=== PATIENT | male | born 1950 | race African-American/Black ===

== ENCOUNTER → 2016-05-13 | Outpatient (CLI) | payer MEDICARE ==
[~2016-05-13] MED LIST: AMLODIPINE-BEN1 EAC5 PO; ASPIRIN81 M2 PO; GLIPIZIDE ER2.5 MG; GLIPIZIDE ER2.5 MG PO; GLIPIZIDE XL5 MG; GLUCOTROL PO; HCTZ PO; HYTRIN10 M1 PO; HYTRIN10 MG PO; METOPROLOL SUC100 MG PO; NABUMETONE PO; RELAFEN500 MG PO
--- NOTE | ~2016-05-13 | CT55 ---
[facility] A Service of [facility] & [facility] RADIOLOGY TEXT RESULTS PATIENT: HARSHA VELAZQUEZ [facility] UNIT #: [id number] AGE: [address]: Bhavik Lomax MD SEX: M ORDER DR: [id number] [facility] [address] [facility]. [place], [place] [address] [id number] O MR#: [id number] [facility] #: [id number] NAME: HARSHA VELAZQUEZ : 1950 SEX: M STUDY DATE/TIME: 05/13/2016 12:00 UNIT: CCA ROOM: STUDY DESCRIPTION: CT Chest W Con Attending Physician: Bhavik Lomax M.D. Ordering Physician: Bhavik Lomax M.D. Primary Care Physician: Jeff Conley M.D. MEDICAL IMAGING REPORT This report is preliminary unless electronic signature is present EXAM CT chest with contrast, 05/13/2016 12 o'clock hours HISTORY 65-year-old man with history of smoking and 2-week history of productive cough for further evaluation of an abnormal chest x-ray demonstrating a left hilar mass and left lingular nodule today. COMPARISON Chest film, 05/13/[address] images were obtained from the thoracic inlet through the adrenal glands. Sagittal and coronal reconstructions were performed. Contrast was Isovue-370, 70 mL IV. Total exam DLP 999 mGy-cm. This CT exam was performed with one or more of the following radiation dose reduction techniques: automatic exposure control, adjustment of mA and/or kV according to patient size, and iterative reconstruction. FINDINGS Images through the thoracic inlet demonstrate a normal thyroid gland. There is no supraclavicular adenopathy. Images through the chest are abnormal. There is a large left perihilar and infrahilar mass measuring 5.9 x 5.5 x 6.4 cm cephalocaudad. This extends from the left hilum abutting the posterior margin of the left mainstem bronchus and encases the left lower lobe pulmonary artery extending inferomedially and abuts the right lateral margin of the descending thoracic aorta without definite invasion. There are small prevascular, precarinal and subcarinal lymph nodes. There is no pericardial or pleural fluid. [facility] A Service of [facility] RADIOLOGY TEXT RESULTS PATIENT: HARSHA VELAZQUEZ LOCATION: [facility] : 48 UNIT #: [id number] AGE: [address]: Bhavik Lomax MD SEX: M ORDER DR: Lung window images demonstrate underlying centrilobular emphysema with a well-circumscribed noncalcified suspicious nodule in the lingular segment of the left upper lobe measuring 1.5 x 1.3 x 1.3 cm. There is minimal airspace and ground-glass change at the left lower lobe laterally, felt most likely a postobstructive process. The right adrenal gland demonstrates minimal thickening laterally. There is central nodularity in the left adrenal gland with a dense area measuring 1.1 cm and a low-density area surrounding this measuring 2.6 x 2.5 cm. This is indeterminate. There are bilateral upper pole renal lesions most consistent with cysts although these are incompletely evaluated. No definite liver lesion is seen. Bone window images demonstrate no lytic or blastic lesions. IMPRESSION 1. Abnormal chest CT confirming the presence of a 1.5 x 1.3 x 1.3 cm well-circumscribed noncalcified soft tissue nodule in the lingula. There is associated left hilar/infrahilar large macrolobulated mass measuring 5.9 x 5.5 x 6.4 cm. These findings correspond to the findings seen on chest x-ray today and are highly suspicious for primary lung carcinoma. The lesion in the lingula is well circumscribed. This could represent the primary tumor with adenopathy at the hilum. Alternatively, this could represent a peripheral metastasis. Its well-circumscribed contours favor metastasis. 2. There are small mediastinal and hilar nodes but no other pathologic nodes. The tumor mass at the left hilum abuts the left mainstem bronchus posterior wall with involvement of the wall suggested. It abuts the descending thoracic aorta left lateral margin without definite invasion. It encases the left lower lobe pulmonary artery which is patent. 3. There are no bone lesions. 4. Mild thickening of the right adrenal gland with enlargement of the left adrenal gland with low-density area measuring up to 2.6 cm and hyperdense area measuring 1.2 cm. Left adrenal metastasis cannot be excluded. 5. There are low attenuation lesions in upper poles of both kidneys, incompletely evaluated. Cysts are favored. 6. No bone lesions are seen. STAT * RESULT Dictated by... Olesya Bowens M.D. THIS IS AN ELECTRONICALLY VERIFIED REPORT Olesya Bowens M.D. at 05/13/2016 2:32 PM SMM/flaco [facility] A Service of [facility] & [facility] RADIOLOGY TEXT RESULTS PATIENT: HARSHA VELAZQUEZ LOCATION: [facility] : [birth year] UNIT #: [id number] AGE: [address]: Bhavik Lomax MD SEX: M ORDER DR: TD: 05/13/2016 12:37 JOB #: [id number] MEDICAL IMAGING REPORT Page 1 of 1 COPY
[2016-05-13 16:11] LABS: POC - CREATININE 1.53 mg/dL (0.64-1.27)
== END | disposition home or self-care (01) ==
LOC: CCAT 11:20
PROVIDERS: Family Medicine
DX: R05 Cough (principal); R52 Pain, unspecified; R93.8 Abnormal findings on diagnostic imaging of other specified body structures; R91.1 Solitary pulmonary nodule; R91.8 Other nonspecific abnormal finding of lung field; E27.8 Other specified disorders of adrenal gland; F17.200 Nicotine dependence, unspecified, uncomplicated
CPT/HCPCS: 71260; 82565; Q9967

== ENCOUNTER → 2016-06-14 | Outpatient (CLI) | payer MEDICARE ==
[2016-06-14 09:35] LABS: ARTERIAL BLD GAS O2 SATURATION 93.8 % (90.0-100.0); ARTERIAL BLOOD GAS CARBOXY HB 1.2 %sat (0.0-9.0); ARTERIAL BLOOD GAS HCO3 26.5 mmol/L; ARTERIAL BLOOD GAS MET HB 0.6 %sat (0.0-2.0)
[2016-06-14 09:36] LABS: ARTERIAL BLOOD GAS ALLEN TEST N; ARTERIAL BLOOD GAS ART SITE LEFT RADIAL; ARTERIAL BLOOD GAS PO2 69.9 mmHg (80.0-100); ARTERIAL DRAW? YES
== END | disposition home or self-care (01) ==
LOC: CRC 08:42
PROVIDERS: Surgery
DX: R59.0 Localized enlarged lymph nodes (principal); R91.8 Other nonspecific abnormal finding of lung field
CPT/HCPCS: 36600; 82803; 94060; 94726; 94729

== ENCOUNTER → 2016-06-17 | Day surgery (SDC) | payer MEDICARE ==
--- NOTE | ~2016-06-17 | OR ---
Unit #: [id number] #: [id number] Patient: HARSHA VELAZQUEZ [id number] [address] [place], [place] [address] [id number] O MR#: [id number] NAME: HARSHA VELAZQUEZ ROOM: Date of Procedure: 06/17/2016 Admission Date: 06/17/2016 Surgeon: Rudi Mcknight M.D. : 1950 Attending Physician: Rudi Mcknight M.D. Primary Care Physician: Bhavik Lomax M.D. OPERATIVE REPORT PREOPERATIVE DIAGNOSIS Tumor obstructing the left lower lobe bronchus. POSTOPERATIVE DIAGNOSES Tumor obstructing the left lower lobe bronchus with gross tumor involving the distal left mainstem bronchus and totally obstructing the left lower lobe bronchus as well as narrowing the takeoff to the left upper lobe. PROCEDURE PERFORMED Flexible fiberoptic bronchoscopy with biopsies obtained of the tumor of the distal left mainstem bronchus and with washings being collected. ANESTHESIA Local plus IV sedation. ESTIMATED BLOOD LOSS Minimal. COMPLICATIONS None. DESCRIPTION OF PROCEDURE The patient was taken to the endoscopy suite and placed on a stretcher in a supine position. After appropriate monitoring lines had been placed, IV sedation was obtained using a total of 5 mg of intravenous Versed and 200 mcg of intravenous fentanyl. Anesthesia of the posterior pharynx was obtained using Hurricaine spray. After adequate anesthesia had been obtained in this fashion, the flexible bronchoscope was passed orally per a bite block into the posterior pharynx. The vocal cords were visualized and found to be without lesions and both moved well with phonation. Anesthesia of the cords was obtained by injecting 2% Xylocaine per the scope. The scope was passed through the cords into the trachea. 1% Xylocaine was injected per the scope to anesthetize the tracheobronchial tree. The entire length of trachea was visualized and found to be normal. The sam was sharp. The right upper lobe, right middle lobe, and right lower lobe were all examined to their subsegmental bronchi level and found to be within normal limits. The proximal left mainstem bronchus was normal. Distally in the left mainstem bronchus, there was noted to be gross tumor with a whitish discoloration and totally obstructing the takeoff of the left lower lobe. The tumor extended over so much that it narrowed the subsequent takeoff to the left upper lobe. I was unable to get the scope past the tumor and examined the left upper lobe. Photos Unit #: [id number] #: [id number] Patient: HARSHA VELAZQUEZ were taken of the tumor. Multiple biopsies were obtained from the tumor and these were sent to Pathology. Also washings were collected and sent for cytology as well as cultures. After adequate hemostasis had been ensured, the bronchoscope was removed. The patient tolerated the procedure well and left the endoscopy suite in satisfactory condition. Dictated by... Rudi Mcknight M.D. VINAY/lilly TD: 06/18/2016 20:44 JOB #: [id number] OPERATIVE REPORT Page 1 of 1 X Rudi Mcknight MD X PROCEDURE OPERATIVE NOTE
== END | disposition home or self-care (01) ==
LOC: COPS 09:12
PROVIDERS: Surgery
DX: J98.4 Other disorders of lung (principal); E11.9 Type 2 diabetes mellitus without complications
CPT/HCPCS: 82947; 87070; 87077; 87102; 87107; 87116; 87205; 87206; 88108; 88305; 88312; J0171; J2250; J3010

== ENCOUNTER → 2016-07-02 | Outpatient (CLI) | payer MEDICARE ==
--- NOTE | ~2016-07-02 | NM70 ---
[facility] A Service of [facility] RADIOLOGY TEXT RESULTS PATIENT: HARSHA VELAZQUEZ LOCATION: [facility] : 48 UNIT #: [id number] AGE: [address]: Rudi Mcknight MD SEX: M ORDER DR: [id number] [facility] [address] [place], [place] [address] [id number] O MR#: [id number] Acc #: [id number] NAME: HARSHA VELAZQUEZ : 1950 SEX: M STUDY DATE/TIME: 07/02/2016 11:02 UNIT: [facility] ROOM: STUDY DESCRIPTION: [place] Pulmonary Perf Image Attending Physician: Rudi Mcnkight M.D. Referring Physician: Rudi Mcknight M.D. Ordering Physician: Rudi Mcknight M.D. Primary Care Physician: Bhavik Lomax M.D. MEDICAL IMAGING REPORT This report is preliminary unless electronic signature is present EXAM Quantitative perfusion lung scan. HISTORY Left lower lobe lung cancer. Preop lung surgery. FINDINGS Split function perfusion lung scan was performed following injection of 5.84 mCi technetium MAA. There is uniformly diminished perfusion to the left lung as compared to the right. Total lung perfusion is 87% right lung and 13% left lung. There is fairly uniform tracer uptake throughout the right lung and uniform, though diffusely diminished uptake in the left lung. In the left lung, 50% of the perfusion uptake is in the left upper lobe distribution. IMPRESSION Uniformly diminished perfusion to the left lung as compared to the right. The total lung perfusion is 87% right lung and 13% left lung. Dictated by... Jaylan Butcher M.D. THIS IS AN ELECTRONICALLY VERIFIED REPORT Jaylan Butcher M.D. at 07/02/2016 11:33 PM AUBREY/dee dee TD: 07/02/2016 22:27 JOB #: [id number] MEDICAL IMAGING REPORT Page 1 of 1 COPY
== END | disposition home or self-care (01) ==
LOC: CNUC 10:31
DX: Z01.811 Encounter for preprocedural respiratory examination (principal); C34.90 Malignant neoplasm of unspecified part of unspecified bronchus or lung; R94.2 Abnormal results of pulmonary function studies
CPT/HCPCS: 78580; A9540

== ENCOUNTER → 2016-07-05 | Outpatient (CLI) | payer MEDICARE ==
--- NOTE | ~2016-07-05 | ST ---
Unit #: [id number] #: [id number] Patient: HARSHA VELAZQUEZ [id number] [address] [address] [id number] O MR#: [id number] NAME: HARSHA VELAZQUEZ : 1950 SEX: M STUDY DATE/TIME: 07/05/2016 UNIT: [facility] ROOM: STUDY DESCRIPTION: Stress test Attending Physician: Rudi Mcknight M.D. Referring Physician: Rudi Mcknight M.D. Primary Care Physician: Jeff Conley M.D. CARDIOLOGY REPORT PROCEDURES PERFORMED Nuclear stress test - ECG portion. INDICATION Preoperative cardiovascular risk stratification. SUMMARY Patient underwent Lexiscan protocol. The patient's resting heart rate 62 beats per minute, which increased to 116 beats per minute representing 75% of the maximum age predicted heart rate. The patient's resting blood pressure 114/65 mmHg, which increased to 160/60 mmHg. The patient's resting ECG showed normal sinus rhythm with normal ST segments. The patient's stress ECG shows sinus rhythm with preserved ST segments. There is no ventricular, supraventricular ectopy noted. There are no pauses noted. CONCLUSIONS No obvious ischemia on the ECG portion of the nuclear stress test. Perfusion imaging dictated below. PROCEDURES PERFORMED Perfusion imaging. SUMMARY The patient underwent nuclear stress test. Received resting dose of 11.16 mCi and a stress dose of 34.3 mCi. On gated imaging the patient appears to have normal wall motion with preserved ejection fraction. The patient's LVEF is 62%. On perfusion imaging, comparing rest and stress images, there appears to be no reversible perfusion defects. CONCLUSIONS 1. No obvious ischemia. 2. Preserved ejection fraction. 3. ECG portion dictated above. Dictated by... Sheila Gallo M.D. [place]/db TD: 07/05/2016 15:47 Unit #: [id number] #: [id number] Patient: HARSHA VELAZQUEZ JOB #: [id number] CARDIOLOGY REPORT Page 1 of 1 X SHEILA GALLO MD CARDIOLOGY REPORT
== END | disposition home or self-care (01) ==
LOC: CNUC 07:59
DX: Z01.810 Encounter for preprocedural cardiovascular examination (principal); D49.1 Neoplasm of unspecified behavior of respiratory system
CPT/HCPCS: 78452; 93017; A9500; J2785

== ENCOUNTER → 2016-07-22 | Outpatient (CLI) | payer MEDICARE ==
--- NOTE | ~2016-07-22 | EKG ---
PATIENT: HARSHA VELAZQUEZ UNIT #: [id number] Ventricular Rate: 70 BPM Atrial Rate: 70 BPM P-R Interval: 170 ms QRS Duration: 98 ms Q-T Interval: 388 ms QTC Calculation(Bezet): 419 ms P [place]: 90 degrees Calculated R [place]: 89 degrees Calculated T [place]: 47 degrees Diagnosis Line: Sinus rhythm with Premature atrial complexes Diagnosis Line: Voltage criteria for left ventricular hypertrophy Diagnosis Line: Borderline ECG Diagnosis Line: No previous ECGs available Diagnosis Line: Confirmed by JOANNA ONOFRE MD ([id number]) on Diagnosis Line: 07/24/2016 1:02:55 PM INTERPRETING MD: MJ
[2016-07-22 09:46] LABS: HEMATOCRIT 36.3 % (38.0-50.0); HEMOGLOBIN 11.9 gm/dL (13.0-16.0); MEAN CELL VOLUME 85.2 FL (83-96); MEAN CORPUSCULAR HEMOGLOBIN 27.9 PG (28-34); MEAN CORPUSCULAR HGB CONC 32.8 g/dL (30-36); MEAN PLATELET VOLUME 7.8 FL (6.5-11.5); RED BLOOD COUNT 4.26 X10e (3.90-5.60); RED CELL DISTRIBUTION WIDTH 13.9 % (11.0-15.5); WHITE BLOOD COUNT 9.6 X10e3 (4.0-10.5)
[2016-07-22 09:59] LABS: URINE APPEARANCE CLEAR; URINE BILIRUBIN NEG (NEG); URINE BLOOD NEG (NEG); URINE COLOR YELLOW; URINE GLUCOSE NEG (NEG); URINE KETONE NEG (NEG); URINE LEUKOCYTE ESTERASE NEG (NEG); URINE NITRATE NEG (NEG); URINE PROTEIN NEG (NEG); URINE SPECIFIC GRAVITY 1.018 (1.003-1.035)
[2016-07-22 10:09] LABS: INR 1.1; PARTIAL THROMBOPLASTIN TIME 32.9 SECONDS (23.5-31.3); PROTHROMBIN TIME (PATIENT) 11.7 SECONDS (9.6-11.5)
[2016-07-22 10:20] LABS: ALBUMIN SERUM 3.2 g/dL (3.5-5.0); BUN/CREATININE RATIO 17.27; CALCIUM SERUM 9.4 mg/dL (8.4-10.2); CREATININE SERUM 1.1 mg/dL (0.6-1.4); GLOM FILT RATE Estimated 80.7 mL/min (>60); POTASSIUM 4.1 mmol/L (3.5-5.1); PROTEIN TOTAL SERUM 6.8 g/dL (6.0-8.3)
== END | disposition home or self-care (01) ==
LOC: CAMB 09:00 → EDSTATUS 09:00 → CAMB 09:06
PROVIDERS: Surgery
DX: R91.8 Other nonspecific abnormal finding of lung field (principal)
CPT/HCPCS: 36415; 80053; 81003; 85027; 85610; 85730; 86850; 86900; 86901; 93005

== ENCOUNTER → 2016-07-23 | Day surgery (SDC) | payer MEDICARE ==
--- NOTE | ~2016-07-23 | OR ---
Unit #: [id number] #: [id number] Patient: HARSHA VELAZQUEZ [id number] [address] [address] [id number] O MR#: [id number] NAME: HARSHA VELAZQUEZ ROOM: Date of Procedure: 07/23/2016 Admission Date: 07/23/2016 Surgeon: Rudi Mcknight M.D. : 1950 Attending Physician: Rudi Mcknight M.D. Primary Care Physician: Bhavik Lomax M.D. OPERATIVE REPORT PREOPERATIVE DIAGNOSIS Obstructing tumor at the left lower lobe takeoff. 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 PROCEDURES PERFORMED Flexible fiberoptic bronchoscopy with biopsies obtained of the tumor at the takeoff of the left lower lobe and with washings being collected; mediastinoscopy with biopsies. ANESTHESIA General. ESTIMATED BLOOD LOSS About 75 mL. DRAINS None. COMPLICATIONS None. DESCRIPTION OF PROCEDURE The patient was taken to the operating room and placed on the operating room table in a supine position. After appropriate monitoring lines had been placed, general endotracheal anesthesia was then induced using a single-lumen endotracheal tube. Flexible fiberoptic bronchoscopy was performed per this endotracheal tube per a side-port adapter placed on the tube. The distal trachea appeared normal. The sam was sharp. The right upper lobe, right middle lobe, and right lower lobe were all examined to their subsegmental bronchi level and found to be within normal limits. The proximal left mainstem bronchus was normal. Distally, in the left mainstem bronchus, there was noted to be gross tumor that was causing obstruction of the left lower lobe bronchus and because of the extension out into the distal left mainstem bronchus was causing narrowing of the takeoff of the left upper lobe. Multiple biopsies were obtained of this tumor and they were sent to Pathology for frozen section. Frozen section showed carcinoma to be present with small cell carcinoma being favored by the pathologist on the frozen sections. Following this, a rolled sheet was placed beneath the shoulders such as to extend the neck. The neck and Unit #: [id number] #: [id number] Patient: HARSHA VELAZQUEZ anterior chest were prepped with DuraPrep and draped in a sterile fashion. A small transverse skin incision was made just above the jugular notch. The incision was carried down through the subcutaneous tissue with hemostasis being obtained using the Bovie. Dissection was carried out in a vertical fashion between the strap muscles exposing the pretracheal fascia just below the thyroid isthmus. Dissection was carried down into the mediastinum along the anterior wall of the trachea. The mediastinoscope was inserted and further dissection carried out through the scope using a metal suction catheter. Dissection was carried out in the lower paratracheal area with little to no lymph nodes present in this area. The nodes that were obtained were biopsied using cupped biopsy forceps and these were sent to Pathology for permanent sections. There was some bleeding from a small venous branch that was controlled using a suction Bovie. Following this, the area was packed for a short time with a vaginal pack and then it was subsequently removed. Further hemostasis was again obtained using the suction Bovie. Surgicel was left at the biopsy site. Mediastinoscope was removed. The strap muscles were reapproximated using a [id number] suture of 3-0 Vicryl. Subcutaneous tissue was closed using running 3-0 Vicryl suture. The skin edges were reapproximated using running 4-0 Vicryl subcuticular stitch. Dermabond was applied to the incision. Following this, repeat flexible bronchoscopy was performed using the flexible bronchoscope per a side-port adapter on the endotracheal tube. The scope was passed back down into the distal left mainstem bronchus and multiple other biopsies were obtained from the tumor in this area obstructing the left lower lobe. These biopsies were sent to Pathology for permanent sections. After adequate hemostasis had been ensured, the bronchoscope was removed. The patient tolerated the procedure well and left the operating room in satisfactory condition. Dictated by... Malik Christina/lilly TD: 07/25/2016 00:18 JOB #: [id number] OPERATIVE REPORT Page 1 of 1 X Rudi Mcknight MD X PROCEDURE OPERATIVE NOTE
--- NOTE | ~2016-07-23 | CR71 ---
[facility] A Service of [facility] RADIOLOGY TEXT RESULTS PATIENT: HARSHA VELAZQUEZ LOCATION: [facility] : [birth year] UNIT #: [id number] AGE: [address]: Rudi Mcknight MD SEX: M ORDER DR: [id number] [facility] [address] [address] [id number] O MR#: [id number] Acc #: [id number] NAME: HARSHA VELAZQUEZ : 1950 SEX: M STUDY DATE/TIME: 07/23/2016 15:57 UNIT: [facility] ROOM: STUDY DESCRIPTION: CR Chest Single View Attending Physician: Rudi Mcknight M.D. Ordering Physician: Rudi Mcknight M.D. Primary Care Physician: Bhavik Lomax M.D. MEDICAL IMAGING REPORT This report is preliminary unless electronic signature is present EXAM Portable chest INDICATION Postop bronchoscopy, left hilar mass. Shortness of air today. FINDINGS This portable view of the chest shows the right lung is clear. The left lung is collapsed and there is shift of the mediastinum to the left side. The previous exam in April showed what appeared to be a left sided mass in the hilar region. IMPRESSION There appears to be complete collapse of the left lung with shift of the mediastinum to the left side. The bronchus is abruptly narrow suggesting something plugging the left main stem bronchus. STAT * RESULT Dictated by... Dustin Gomes M.D. THIS IS AN ELECTRONICALLY VERIFIED REPORT Dustin Gomes M.D. at 07/23/2016 5:02 PM Sima TD: 07/23/2016 16:49 JOB #: [id number] MEDICAL IMAGING REPORT [facility] A Service of [facility] RADIOLOGY TEXT RESULTS PATIENT: HARSHA VELAZQUEZ LOCATION: [facility] #: [id number] : [birth year] UNIT #: [id number] AGE: [address]: Rudi Mcknight MD SEX: M ORDER DR: Page 1 of 1 COPY
== END | disposition home or self-care (01) ==
LOC: CSUR 10:59
PROVIDERS: Surgery
DX: C34.32 Malignant neoplasm of lower lobe, left bronchus or lung (principal); I10 Essential (primary) hypertension; E11.9 Type 2 diabetes mellitus without complications; F41.9 Anxiety disorder, unspecified; F32.9 Major depressive disorder, single episode, unspecified; M19.90 Unspecified osteoarthritis, unspecified site; Z87.891 Personal history of nicotine dependence; Z87.2 Personal history of diseases of the skin and subcutaneous tissue; Z79.84 Long term (current) use of oral hypoglycemic drugs; Z79.899 Other long term (current) drug therapy; Z98.890 Other specified postprocedural states
CPT/HCPCS: 71010; 82947; 87070; 87077; 87102; 87107; 87116; 87205; 87206; 88108; 88305; 88331; 88341; 88342; J0330; J0690; J2250; J2370; J2710; J3010

== ENCOUNTER → 2016-08-12 | Day surgery (SDC) | payer MEDICARE ==
--- NOTE | ~2016-08-12 | CR71 ---
[facility] A Service of [facility] RADIOLOGY TEXT RESULTS PATIENT: HARSHA VELAZQUEZ LOCATION: [facility] : 48 UNIT #: [id number] AGE: [address]: Rudi Mcknight MD SEX: M ORDER DR: [id number] [facility] [address] [facility] [address] [place], [place] [address] [id number] O MR#: [id number] Acc #: [id number] NAME: HARSHA VELAZQUEZ : 1950 SEX: M STUDY DATE/TIME: 08/12/2016 11:34 UNIT: [facility] ROOM: STUDY DESCRIPTION: CR Chest Single View Attending Physician: Rudi Mcknight M.D. Ordering Physician: Rudi Mcknight M.D. Primary Care Physician: Jeff Conley M.D. MEDICAL IMAGING REPORT This report is preliminary unless electronic signature is present EXAM Chest x-ray HISTORY Port placement COMPARISON 07/23/16 TECHNIQUE Single view of the chest was obtained. FINDINGS A single view of the chest shows improved aeration in the left lung since the previous examination. Left perihilar and lower lung field consolidation is again noted, with increased density around the left hilum. The right lung is clear. A port is seen entering from a right subclavian approach with the tip in the lower superior vena cava in satisfactory position. No pneumothorax. IMPRESSION The port is in satisfactory position. Aeration of the left lung shows marked improvement from the previous examination. STAT * RESULT Dictated by... You Ibrahim M.D. THIS IS AN ELECTRONICALLY VERIFIED REPORT You Ibrahim M.D. at 08/12/2016 6:52 PM RLF/fito [facility] A Service of [facility] RADIOLOGY TEXT RESULTS PATIENT: HARSHA VELAZQUEZ LOCATION: [facility] : [birth year] UNIT #: [id number] AGE: [address]: Rudi Mcknight MD SEX: M ORDER DR: TD: 08/12/2016 12:21 JOB #: [id number] MEDICAL IMAGING REPORT Page 1 of 1 COPY
[2016-08-12 08:46] LABS: BASOPHIL% 0.8 % (0-2.5); EOSINOPHIL# 0.2 X10e3 (0-0.7); EOSINOPHIL% 4.1 % (0.0-7.0); HEMATOCRIT 35.8 % (38.0-50.0); HEMOGLOBIN 11.7 gm/dL (13.0-16.0); LYMPHOCYTE# 1.3 X10e3 (1.0-3.5); LYMPHOCYTE% 24.5 % (17.0-45.0); MEAN CELL VOLUME 84.3 FL (83-96); MEAN CORPUSCULAR HEMOGLOBIN 27.5 PG (28-34); MEAN CORPUSCULAR HGB CONC 32.6 g/dL (30-36); MEAN PLATELET VOLUME 7.6 FL (6.5-11.5); MONOCYTE# 0.5 X10e3 (0-1.0); MONOCYTE% 9.8 % (3.0-12.0); NEUTROPHIL# 3.3 X10e3 (1.5-7.1); NEUTROPHIL% 60.8 % (40-75); PLATELET COUNT 342 X10e3 (140-420); RED BLOOD COUNT 4.24 X10e (3.90-5.60); RED CELL DISTRIBUTION WIDTH 13.9 % (11.0-15.5); WHITE BLOOD COUNT 5.4 X10e3 (4.0-10.5)
[2016-08-12 08:47] LABS: DIFF IND NO
[2016-08-12 08:59] LABS: PARTIAL THROMBOPLASTIN TIME 27.5 SECONDS (23.5-31.3); PROTHROMBIN TIME (PATIENT) 11.1 SECONDS (10.0-11.7)
[2016-08-12 09:10] LABS: BUN/CREATININE RATIO 14.28; CALCIUM SERUM 9.5 mg/dL (8.4-10.2); CREATININE SERUM 1.4 mg/dL (0.6-1.4); GLOM FILT RATE Estimated 60.3 mL/min (>60); POTASSIUM 3.9 mmol/L (3.5-5.1)
== END | disposition home or self-care (01) ==
LOC: CSUR 08:15
PROVIDERS: Surgery
DX: C34.32 Malignant neoplasm of lower lobe, left bronchus or lung (principal); Z45.2 Encounter for adjustment and management of vascular access device; E11.9 Type 2 diabetes mellitus without complications; Z79.84 Long term (current) use of oral hypoglycemic drugs; I10 Essential (primary) hypertension; F17.210 Nicotine dependence, cigarettes, uncomplicated
CPT/HCPCS: 71010; 77001; 80048; 82947; 85025; 85610; 85730; C1788; J0690; J1644; J2250; J2405; J3010

== ENCOUNTER → 2016-08-13 | Outpatient (CLI) | payer MEDICARE ==
--- NOTE | ~2016-08-13 | OR ---
Unit #: [id number] #: [id number] Patient: HARSHA VELAZQUEZ [id number] [address] [place], [place] [address] [id number] O MR#: [id number] NAME: HARSHA VELAZQUEZ ROOM: Date of Procedure: 08/12/2016 Admission Date: 08/13/2016 Surgeon: Rudi Mcknight M.D. : 1950 Attending Physician: Rudi Mcknight M.D. Referring Physician: Jeff Conley M.D. Primary Care Physician: Jeff Conley M.D. 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 PROCEDURE PERFORMED Insertion of a right subclavian PowerPort. ANESTHESIA General. ESTIMATED BLOOD LOSS Less than 5 mL. DRAINS None. COMPLICATIONS None. DESCRIPTION OF PROCEDURE The patient was taken to the operating room and placed on the operating room table in a supine position. After appropriate monitoring lines had been placed, general anesthesia was then induced using an LMA tube. A rolled sheet was placed beneath the shoulders such as to extend the neck. The neck and upper chest bilaterally were prepped with DuraPrep and draped in a sterile fashion. The area was anesthetized with 1% local Xylocaine in the right subclavian vein, then entered with a needle. A guidewire was passed per this needle down into the superior vena cava. The guidewire was clipped to the drapes with a hemostat. A point was chosen on the right anterior chest for placement of the venous port. A small transverse skin incision was made just above this proposed site after the area had been injected with 1% Xylocaine. The incision was carried down through the subcutaneous tissue with hemostasis being obtained using the Bovie. A subcutaneous pocket was formed beneath the lower skin flap just superficial to the pectoralis major fascia. Hemostasis of this pocket was obtained using the Bovie. A stab wound incision was made at the area where the guidewire entered the skin. An introducer was passed over the guidewire. The Silastic tubing for the venous port which had been irrigated with heparinized saline solution was then passed per this introducer. The introducer was stripped away. The Silastic tubing was Unit #: [id number] #: [id number] Patient: HARSHA VELAZQUEZ tunneled subcutaneously down to the second incision. Under fluoroscopic control, the tubing was pulled back until its tip was sitting at about the junction between the superior vena cava and right atrium. The tubing was cut and connected to the PowerPort. The port was entered with a Shah needle and blood could easily be aspirated. The port and tubing were irrigated with heparinized saline solution. The PowerPort was placed in the subcutaneous pocket and sutured in place to the pectoralis major fascia using interrupted 3-0 silk suture. The 2 incisions were closed using 3-0 Vicryl for the subcutaneous tissue and running 4-0 Vicryl subcuticular stitch for the skin. Dermabond was applied to the 2 incisions. Estimated blood loss in the procedure was less than 5 mL. Sponge and needle counts in the operation were correct. The patient tolerated the procedure well and left the operating room in satisfactory condition. Dictated by... Malik Christina/lilly TD: 08/13/2016 05:47 JOB #: [id number] OPERATIVE REPORT Page 1 of 1 X Rudi Mcknight MD X PROCEDURE OPERATIVE NOTE
--- NOTE | ~2016-08-13 | MR17 ---
[facility] A Service of [facility] & [facility] RADIOLOGY TEXT RESULTS PATIENT: HARSHA VELAZQUEZ LOCATION: CMRI : 49 UNIT #: [id number] AGE: [address]: Rudi Mcknight MD SEX: M ORDER DR: [id number] [facility] [address] [place], [place] [address] [id number] O MR#: [id number] Acc #: [id number] NAME: HARSHA VELAZQUEZ : 1950 SEX: M STUDY DATE/TIME: 08/13/2016 9:57 UNIT: CMRI ROOM: STUDY DESCRIPTION: MR Brain WWo Contrast Attending Physician: Rudi Mcknight M.D. Referring Physician: Jeff Conley M.D. Ordering Physician: Rudi Mcknight M.D. Primary Care Physician: Jeff Conley M.D. MRI CENTER REPORT This report is preliminary unless electronic signature is present. EXAM MRI of the brain with and without contrast, dated 08/13/2016. COMPARISON None. HISTORY Lung cancer 3 months ago. Screening for metastasis. FINDINGS Multisequence, multiplanar imaging of the brain was obtained with and without contrast. Punctate tiny few hyperintense T2-signal lesions are noted in the white matter with the more prominent patchy nonenhancing T2 signal in the jesus. No enhancing mass, mass effect, midline shift or hydrocephalus. Vascular flow voids of the major cerebral arteries and dural venous sinuses are not obstructed in these thicker slices. Thick slices through the sella with the pituitary gland demonstrates a partially empty sella. Pineal region, upper cervical spine are within normal limits. Mild S-shaped nasal septal deviation is seen. Small nodular nonenhancing mucous retention cyst is seen in the floor of the right maxillary antrum. IMPRESSION 1. No enhancing mass lesions, acute stroke, hydrocephalus or midline shift. 2. Scattered hyperintense T2-signal lesions are noted predominately in the jesus with suspicious tiny punctate 1 or 2 lesions in the supratentorial white matter. They are likely related to chronic microvascular ischemic change based on age and statistics. Nonspecific. Dictated by... [facility] A Service of [facility] & [facility] RADIOLOGY TEXT RESULTS PATIENT: HARSHA VELAZQUEZ LOCATION: CMRI : 49 UNIT #: [id number] AGE: [address]: Rudi Mcknight MD SEX: M ORDER DR: Israel Lamb M.D. THIS IS AN ELECTRONICALLY VERIFIED REPORT Israel Lamb M.D. at 08/17/2016 9:00 PM CPR/jt TD: 08/13/2016 16:08 JOB #: [id number] MRI CENTER REPORT Page 1 of 1 COPY
== END | disposition home or self-care (01) ==
LOC: CMRI 08:36
DX: C34.90 Malignant neoplasm of unspecified part of unspecified bronchus or lung (principal); G93.89 Other specified disorders of brain
CPT/HCPCS: 70553; 76000; A9577

== ENCOUNTER 2016-08-23 10:45 | Inpatient (IN) | payer MEDICARE ==
--- NOTE | ~2016-08-23 | EKG ---
PATIENT: HARSHA VELAZQUEZ UNIT #: [id number] Ventricular Rate: 54 BPM Atrial Rate: 54 BPM P-R Interval: 198 ms QRS Duration: 104 ms Q-T Interval: 430 ms QTC Calculation(Bezet): 407 ms P Riva: 79 degrees Calculated R Riva: 94 degrees Calculated T Riva: 55 degrees Diagnosis Line: Sinus bradycardia Diagnosis Line: Rightward axis Diagnosis Line: Borderline ECG Diagnosis Line: When compared with ECG of 22-JUL-2016 09:44, Diagnosis Line: Premature atrial complexes are no longer Present Diagnosis Line: Confirmed by RADHA HONG MD ([id number]) on 08/25/2016 Diagnosis Line: 3:02:36 PM INTERPRETING MD: GELY CLARK
--- NOTE | ~2016-08-23 | DS ---
Unit #: [id number] #: [id number] Patient: HARSHA VELAZQUEZ [id number] [address] [address] [id number] I MR#: [id number] NAME: HARSHA VELAZQUEZ ROOM: 302 Age: 65 Sex: M Admission Date: 08/23/2016 : 1950 Discharge Date: 08/25/2016 Attending Physician: Dillan Valadez M.D. Primary Care Physician: Jeff Conley M.D. DISCHARGE SUMMARY PRIMARY DIAGNOSIS Lung cancer. SECONDARY DIAGNOSES 1. History of lung culture with Haemophilus influenza. 2. Anemia. 3. Hypertension. 4. Medication-induced bradycardia. 5. Benign prostatic hypertrophy. 6. Diabetes, controlled. HOSPITAL COURSE The patient was placed in the hospital to begin chemotherapy for lung cancer and received IV Decadron and IV Vepesid as well as carboplatin and Aloxi. Patient did well. There was mention in the initial H and P that the patient had a fungal mass; however, review of records does not reveal any fungal mass. He does have the known cancer in his lung with imaging suggestive of the cancer. He had a bronchoscopy with bronch cultures one month prior to admission on July 26 that was positive for Haemophilus influenza, but he does not clinically have a pneumonia at this time. There does not appear to be any current indication for antibiotics. Patient did have some medication-induced bradycardia while here in the hospital. His pulse occasionally dropped down to the high 30s and low 40s per nursing on the evening and morning prior to discharge. I have decreased his home metoprolol succinate to 50 mg p.o. q.a.m. The patient was asymptomatic with the bradycardia. DISCHARGE DISPOSITION To home. DISCHARGE STATUS Stable. FOLLOWUP 1. Followup is with his oncologist for Neulasta and continued chemotherapy. 2. Followup with radiation oncology within the next week for radiation to the lung cancer. 3. Followup with his PCP in two to six weeks. DISCHARGE ACTIVITY Unit #: [id number] #: [id number] Patient: HARSHA VELAZQUEZ Ad des. DISCHARGE DIET Diabetic diet. DISCHARGE MEDICATIONS 1. Metoprolol succinate 24-hour tablet 50 mg p.o. once daily. 2. Amlodipine/benazepril 10/40 mg one tablet p.o. daily. 3. Hydrochlorothiazide 50 mg p.o. daily. 4. Terazosin 10 mg p.o. nightly. 5. Relafen 500 mg which he takes once daily at home. 6. Glucotrol 5 mg p.o. with breakfast and 2.5 mg with dinner. Dictated by... Dillan Valadez M.D. John TD: 08/26/2016 09:48 JOB #: [id number] DISCHARGE SUMMARY Page 1 of 1 X Dillan Valadez MD X DISCHARGE SUMMARY
--- NOTE | ~2016-08-23 | HP ---
Unit #: [id number] #: [id number] Patient: HARSHA VELAZQUEZ [id number] [address] [place], [place] [address] [id number] I MR#: [id number] NAME: HARSHA VELAZQUZE ROOM: 302 Age: 65 Sex: M Admission Date: 08/23/2016 : 1950 Attending Physician: Eva Wray M.D. Primary Care Physician: Jeff Conley M.D. HISTORY AND PHYSICAL CHIEF COMPLAINT Lung cancer. HISTORY OF PRESENT ILLNESS The patient is a 65-year-old male with a recent diagnosis of lung cancer. He is being admitted from the primary care physician's office for initiating chemotherapy while in the hospital. The patient has a history of tobacco abuse two packs per day for the last 25-30 years and quit smoking back in April of this year. The patient had a CT of the chest for a productive cough for two weeks and abnormal chest x-ray demonstrating left hilar mass and left lingular nodule. The CT of the chest showed well-circumscribed noncalcified soft tissue nodule in the lingula concerning for malignancy. The patient had a biopsy that was positive for small cell cancer. The patient had port placement on August 12 and is being admitted for initiation of chemotherapy. The patient denies any fever, chills, nausea, vomiting, or (1) cough. The patient denies any fatigue, weight loss, or night sweats. PAST MEDICAL HISTORY History of lung cancer. PAST SURGICAL HISTORY Biopsies x2. ALLERGIES No known drug allergies. SOCIAL HISTORY Quit smoking back in April of this year. No history of alcohol or any illicit drug abuse. FAMILY HISTORY Reviewed and none. REVIEW OF SYSTEMS A 14-point review of systems was performed and only pertinent positive findings are as described above. The remaining are negative. PHYSICAL EXAMINATION GENERAL: Patient is sitting in a chair not in acute distress. VITAL SIGNS: Temperature is 98.4, pulse 63, respirations 16, and blood pressure 105/63. HEENT: Head atraumatic, normocephalic. Pupils equal, round, and reactive to light and accommodation. Extraocular movements are intact. Unit #: [id number] #: [id number] Patient: HARSHA VELAZQUEZ NECK: Supple. LUNGS: Decreased air entry at the left side. HEART: Regular rate and rhythm. CHEST: Patient has port placement on the right side with no tenderness and no drainage. ABDOMEN: Soft. Positive bowel sounds. EXTREMITIES: No cyanosis, no clubbing. NEUROLOGIC: Alert, awake, and oriented. No gross focal motor deficit. DIAGNOSTIC STUDIES LABORATORY: B12 is 354, ferritin 280. Sodium 135, potassium 4.3, chloride 102, bicarb 25, glucose 134, BUN 18, creatinine 1.2, calcium 9.6, AST 17, ALT 15, and alkaline phosphatase 56. Bronchial culture shows Arthrographis species. INR is 1.1. WBC 5.9, hemoglobin 11.5, hematocrit 35.8, and platelets 245,000. Glucose 163. ASSESSMENT 1. Left-sided small cell lung cancer. 2. Fungal consolidation. 3. Status post port placement. PLAN Admit the patient to inpatient with telemetry. Patient will be seen by Oncology to initiate the chemotherapy. Patient will be started empiric IV Mycamine 100 mg daily and follow with sensitivities for the fungus in the bronchus with Arthrographis. Check blood cultures x2 to rule out fungemia and check blood culture from the port to rule out port infection. Repeat chest x-ray PA and lateral views, and further recommendations will follow. Dictated by Malik Will TD: 08/23/2016 20:12 JOB #: [id number] HISTORY AND PHYSICAL Page 1 of 1 X TRINITY CORRALES MD X HISTORY AND PHYSICAL
--- NOTE | ~2016-08-23 | CO ---
Unit #: [id number] #: [id number] Patient: HARSHA VELAZQUEZ [id number] [address] [address] [id number] I MR#: [id number] NAME: HARSHA VELAZQUEZ ROOM: 302 Age: 65 Sex: M Admission Date: 08/23/2016 : 1950 Attending Physician: Eva Wray M.D. Primary Care Physician: Jeff Conley M.D. CONSULTATION REPORT REVISED REPORT CHIEF COMPLAINT Small cell lung cancer, 6 cm left hilar mass invading the lower lobe and upper lobe, came to receive chemotherapy, radiation next week. HISTORY OF PRESENT ILLNESS This is a 65-year-old male who developed upper respiratory symptoms. Recently, it gradually worsened. Patient had significant cough. Chest x-ray was normal. CT of the chest as well as PET scan showed a 5.9 x 5.5 x 6.6 cm left hilar mass. There was a paratracheal lymph node. There was a hilar mass. This hilar mass was extending to the left lower lobe to some extent, left upper lobe as well. FDG was 16. There was subcarinal lymphadenopathy. Patient had multiple biopsies. They were nondiagnostic. Finally, patient had mediastinoscopy and is positive for small cell lung cancer. Today, he came to hospital to receive first cycle of chemotherapy. His radiation will begin next week. This will be given in sandwich fashion. Today, he complained of mild cough. REVIEW OF SYSTEMS CONSTITUTIONAL: No fever, no chills, no sweats, no weight loss. EYES: No visual symptoms. EARS, NOSE AND THROAT: There is no runny nose or sore throat or difficulty hearing. CARDIOVASCULAR: No chest pain. No shortness of breath. No palpitations. No orthopnea. No PND. RESPIRATORY: As mentioned above. GASTROINTESTINAL: No nausea, vomiting, diarrhea, constipation, hematochezia or melena. GENITOURINARY: No urinary frequency, hesitancy or urgency. No blood in the urine. MUSCULOSKELETAL: No muscle or joint pain. NEUROLOGIC: No headache. No numbness or tingling. No weakness. No seizure. PSYCHIATRIC: No anxiety, depression or mood disturbance. ENDOCRINE: No excessive urination or thirst. DERMATOLOGIC: No rash or change in the skin. ALLERGIC/IMMUNOLOGIC: No symptoms. HEMATOLOGIC/LYMPHATIC: Denies any symptoms. PAST MEDICAL HISTORY 1. Newly diagnosed limited small cell lung cancer. Unit #: [id number] #: [id number] Patient: HARSHA VELAZQUEZ 2. Hypertension. 3. Diabetes. ALLERGIES None. SOCIAL HISTORY The patient has been smoking two pack per day for 30 years. He is still smoking. Denies alcohol abuse. Used to work. He has three children. PAST SURGICAL HISTORY Tonsillectomy. FAMILY HISTORY Mother had some STALLION MANAGER tumor, details not available. PHYSICAL EXAMINATION VITAL SIGNS: Afebrile. O2 saturation on room air 98%, pulse 16, blood pressure 113/64. GENERAL: Patient is comfortable. ECOG is 0. The patient is pleasant. HEENT: Moist mucosa. Pupils equally reactive to light. Extraocular muscles intact. Sclerae anicteric. No obvious bleeding from nasal mucosa or oral mucosa. Scalp normal. Hearing normal. NECK: No JVD. No lymphadenopathy. LYMPHATIC/HEMATOLOGIC: There is no palpable adenopathy in the neck, axilla or inguinal area. CARDIOVASCULAR: S1, S2. Regular rate and rhythm. No S3 or S4. RESPIRATORY: Chest symmetrical, normal. Clear to auscultation bilaterally. No wheezes, no rales, no rhonchi. No dullness to percussion. ABDOMEN/GASTROINTESTINAL: Abdomen is soft, nontender, nondistended. No hepatosplenomegaly. EXTREMITIES: There is no clubbing, no cyanosis, no edema. No varicose veins. NEUROLOGICAL: Patient is alert, awake and oriented x3. Cranial nerves II-XII are intact. Sensory grossly intact. Motor is 4/5 in all four extremities. Gait is normal. Station is normal. Language is normal. Memory is normal. DTRs +2 in all four extremities. MUSCULOSKELETAL: No joint swelling. No bony tenderness. No muscle tenderness. SKIN: No petechiae, no rash, no ecchymosis. PSYCHIATRIC: No anxiety. No delusions or hallucinations. There is no agitation. Eye contact is normal. Affect is appropriate. There is no flight of ideas. DIAGNOSTIC STUDIES LABORATORY: Labs today pending. IMAGING: MRI of the brain, August 13, 2016: Normal. ASSESSMENT This is a 65-year-old male who has limited small cell lung cancer, 6 cm mass. During the diagnostic process, treatment got delayed. We are going to start treatment as soon as possible. DISCUSSION I had an extensive discussion with patient. We are trying to admit today and start the treatment today. Unit #: [id number] #: [id number] Patient: HARSHA VELAZQUEZ PLAN He will be VP16 carboplatin. Neulasta will be given in my clinic. He will receive radiation therapy. Chemoradiation is given in a sandwich fashion. At first, he will receive one cycle. He will continue radiation twice a day for three weeks. Finally, he will receive three cycles of chemotherapy to complete the treatment. He also needs PCI. Dictated by... Malik Solitario/sherley TD: 08/23/2016 16:45 JOB #: [id number] CC: Lennox Jensen M.D. CONSULTATION REPORT Page 1 of 1 X Eva Wray MD X CONSULTATION REPORT
--- NOTE | ~2016-08-23 | CR63 ---
[facility] A Service of [facility] RADIOLOGY TEXT RESULTS PATIENT: HARSHA VELAZQUEZ LOCATION: A 302-01 : [birth year] UNIT #: [id number] AGE: [address]: Dillan Valadez MD SEX: M ORDER DR: [id number] [facility] [address] [place], [place] [address] [id number] I MR#: [id number] Acc #: [id number] NAME: HARSHA VELAZQUEZ : 1950 SEX: M STUDY DATE/TIME: 08/23/2016 19:35 UNIT: A [facility] ROOM: [facility] STUDY DESCRIPTION: CR Chest 2 View Attending Physician: Dillan Valadez M.D. Referring Physician: Rasheed Islas M.D. Ordering Physician: Ed Perry Howell M.D. Primary Care Physician: Jeff Conley M.D. MEDICAL IMAGING REPORT This report is preliminary unless electronic signature is present EXAM PA and lateral chest. HISTORY Cough and congestion for 6 months. FINDINGS Two views of the chest demonstrate a rounded mass posterior to the mid-left hilum measuring close to 9 cm in craniocaudal dimension, larger than on chest x-ray 05/13/2016 when it measured close to 6.7 cm in craniocaudal dimension and probably larger than on chest x-ray 08/12/2016, when it was less well visualized. There is also a rounded nodule in the lingula measuring close to 1.4 cm, similar to prior studies. Cardiac size and pulmonary vascularity are normal. Right subclavian port catheter tip in the mid SVC. Small left pleural effusion. IMPRESSION 1. Interval enlargement of a rounded mass posterior to the left hilum. 2. Persistent small left pleural effusion. 3. Probably stable 1.4 cm nodule in the lingula. Dictated by... Jaylan Butcher M.D. THIS IS AN ELECTRONICALLY VERIFIED REPORT Jaylan Butcher M.D. at 08/24/2016 10:58 PM MALIAL/dee dee TD: 08/24/2016 15:53 JOB #: [id number] [facility] A Service of [facility] RADIOLOGY TEXT RESULTS PATIENT: HARSHA VELAZQUEZ LOCATION: [facility] 302-01 : [birth year] UNIT #: [id number] AGE: [address]: Dillan Valadez MD SEX: M ORDER DR: MEDICAL IMAGING REPORT Page 1 of 1 COPY
[~2016-08-23 10:45] MED LIST changes: -GLUCOTROL PO; -NABUMETONE PO
[2016-08-23 15:37] LABS: HEMATOCRIT 35.8 % (38.0-50.0); HEMOGLOBIN 11.5 gm/dL (13.0-16.0); MEAN CELL VOLUME 84.1 FL (83-96); MEAN CORPUSCULAR HEMOGLOBIN 27.1 PG (28-34); MEAN CORPUSCULAR HGB CONC 32.1 g/dL (30-36); MEAN PLATELET VOLUME 7.9 FL (6.5-11.5); RED BLOOD COUNT 4.25 X10e (3.90-5.60); RED CELL DISTRIBUTION WIDTH 14.8 % (11.0-15.5); WHITE BLOOD COUNT 5.9 X10e3 (4.0-10.5)
[2016-08-23 15:46] LABS: INR 1.1; PARTIAL THROMBOPLASTIN TIME 28.5 SECONDS (23.5-31.3); PROTHROMBIN TIME (PATIENT) 11.5 SECONDS (10.0-11.7)
[2016-08-23 16:09] LABS: ALBUMIN SERUM 3.7 g/dL (3.5-5.0); BILIRUBIN,TOTAL 0.3 mg/dL (0.2-2.0); CALCIUM SERUM 9.6 mg/dL (8.4-10.2); CREATININE SERUM 1.2 mg/dL (0.6-1.4); GLOM FILT RATE Estimated 72.6 mL/min (>60); POTASSIUM 4.3 mmol/L (3.5-5.1); PROTEIN TOTAL SERUM 7.3 g/dL (6.0-8.3)
[2016-08-23 16:26] LABS: FERRITIN 280 ng/mL (24-336)
[2016-08-23] MEDS ORDERED: GLUCOTROL PO ×2 (18:18→18:19)
[2016-08-23] MEDS ORDERED: NABUMETONE PO (18:21)
[2016-08-24 05:57] LABS: HEMATOCRIT 33.6 % (38.0-50.0); MEAN CELL VOLUME 84.2 FL (83-96); MEAN CORPUSCULAR HEMOGLOBIN 27.7 PG (28-34); MEAN CORPUSCULAR HGB CONC 32.8 g/dL (30-36); MEAN PLATELET VOLUME 7.9 FL (6.5-11.5); RED BLOOD COUNT 3.98 X10e (3.90-5.60); RED CELL DISTRIBUTION WIDTH 14.3 % (11.0-15.5)
[2016-08-24 07:06] LABS: ALBUMIN SERUM 3.4 g/dL (3.5-5.0); BILIRUBIN,TOTAL 0.3 mg/dL (0.2-2.0); CALCIUM SERUM 9.5 mg/dL (8.4-10.2); GLOM FILT RATE Estimated 90.5 mL/min (>60); MAGNESIUM 1.9 mg/dL (1.6-3.0); PHOSPHOROUS 2.5 mg/dL (2.5-4.6); POTASSIUM 4.4 mmol/L (3.5-5.1); PROTEIN TOTAL SERUM 7.1 g/dL (6.0-8.3)
[2016-08-25 05:31] LABS: HEMATOCRIT 32.4 % (38.0-50.0); HEMOGLOBIN 10.5 gm/dL (13.0-16.0); MEAN CELL VOLUME 83.9 FL (83-96); MEAN CORPUSCULAR HEMOGLOBIN 27.2 PG (28-34); MEAN CORPUSCULAR HGB CONC 32.4 g/dL (30-36); MEAN PLATELET VOLUME 8.2 FL (6.5-11.5); RED BLOOD COUNT 3.85 X10e (3.90-5.60); RED CELL DISTRIBUTION WIDTH 14.5 % (11.0-15.5)
[2016-08-25 05:50] LABS: WHITE BLOOD COUNT 6.2 X10e3 (4.0-10.5)
[2016-08-25 06:59] LABS: BUN/CREATININE RATIO 23.75; CALCIUM SERUM 9.1 mg/dL (8.4-10.2); CREATININE SERUM 0.8 mg/dL (0.6-1.4); GLOM FILT RATE Estimated 107.9 mL/min (>60); POTASSIUM 4.2 mmol/L (3.5-5.1)
== END 2016-08-25 16:15 | disposition home or self-care (01) | DRG 847 ==
LOC: UNDOADMIN 10:45 → C3A PCU 10:45
PROVIDERS: Internal Medicine; Internal Medicine Hematology
DX: Z51.11 Encounter for antineoplastic chemotherapy (principal); C34.92 Malignant neoplasm of unspecified part of left bronchus or lung; I10 Essential (primary) hypertension; Z87.891 Personal history of nicotine dependence; E11.9 Type 2 diabetes mellitus without complications; R00.1 Bradycardia, unspecified; T50.905A Adverse effect of unspecified drugs, medicaments and biological substances, initial encounter; Y92.239 Unspecified place in hospital as the place of occurrence of the external cause
CPT/HCPCS: 71020; 80048; 80053; 82607; 82728; 82947; 83540; 83550; 83735; 84100; 85027; 85610; 85730; 87040; 93005; 94760; J1100; J1200; J1642; J1650; J1815; J2248; J2469; J9045; J9181